=== PATIENT | female | born 1995 | race Caucasian/White ===

== ENCOUNTER → 2019-12-31 | Outpatient (CLI) | payer OTHER ==
[2019-12-31 13:23] LABS: Basophils % (A) 0 %; Eosinophils # (A) 0.1 k/uL (0-0.7); Eosinophils % (A) 1 %; HGB 14.4 gm/dL (11.4-16.0); Lymphocytes # (A) 2.3 k/uL (1.0-4.8); Lymphocytes % (A) 29 %; MCH 27.3 pg (25.0-35.0); MCV 85.4 fL (80.0-100.0); Mean Platelet Volume 8.1; Monocytes # (A) 0.3 k/uL (0-1.0); Monocytes % (A) 4 %; Neutrophils % (A) 65 %; Platelet Count 227 k/uL (150-450); RBC 5.27 m/uL (3.80-5.40); RDW 13.6 % (11.5-15.5); WBC 7.8 k/uL (3.8-10.6)
[2019-12-31 18:37] LABS: African American GFR (CKD) 121.3 (60.0-200.0); Albumin 4.7 g/dL (3.80-4.90); Albumin/Globulin Ratio 1.96 (1.60-3.17); Anion Gap 9.3 mmol/L (4.00-12.00); BUN/Creat Ratio 13.75 Ratio (12.00-20.00); Calcium 9.6 mg/dL (8.7-10.3); Carbon Dioxide 26.7 mmol/L (21.6-31.8); Globulin 2.4 g/dL (1.6-3.3); Non-African American GFR(CKD) 104.6 (60.0-200.0); Total Bilirubin 0.8 mg/dL (0.3-1.2); Total Protein 7.1 g/dL (6.2-8.2)
== END | disposition home or self-care (01) ==
LOC: LABWHC1 10:58
PROVIDERS: ATTEND Family Medicine
DX: R11.0 Nausea (principal)
CPT/HCPCS: 36415; 80053; 85025

== ENCOUNTER 2021-11-26 15:27 | Observation (INO) | payer OTHER ==
--- NOTE | 2021-11-26 17:29 | ED ---
Neuro HPI - General Chief Complaint: Dizziness Stated Complaint: Numbness, Dizzy, AMS Time Seen by Provider: 11/26/21 17:16 Source: patient, family, RN notes reviewed Mode of arrival: ambulatory Limitations: no limitations - History of Present Illness Is the patient presenting with stroke symptoms?: Yes Last Known Well Date: 11/26/21 Last Known Well Time: 13:00 Initial Comments: Patient is a 26-year-old female presenting to the emergency room with complaint of an episode of slurred speech, difficulty finding words and right upper extremity weakness that occurred earlier today around 1 PM along with associated dizziness and unsteady gait. She also reports a pressure sensation to her neck and head. She still has some dizziness and reports unsteady gait and mild headache without any difficulty with speech or extremity weakness at this time. She reports being Covid positive approximately 3 weeks ago but has returned to work and was at work when symptoms occurred. She does have a past medical history significant for asthma, palpitations, Car, "syncopal episodes" and febrile seizure disorder as a child. - Related Data Home Medications: Home Medications Medication Instructions Recorded Confirmed Albuterol Sulfate [Proair Hfa] 2 puff INHALATION RT-Q6H PRN 11/26/21 11/26/21 Allergies/Adverse Reactions: Allergies Allergy/AdvReac Type Severity Reaction Status Date / Time Aminoglycosides Allergy Anaphylaxis Verified 11/26/21 18:35 cefixime [From Suprax] Allergy Anaphylaxis Verified 11/26/21 18:35 measles and rubella live Allergy Anaphylaxis Verified 11/26/21 18:35 virus vacc [measles and rubella live vacc] measles vaccine, live Allergy Anaphylaxis Verified 11/26/21 18:35 tetanus and diphtheria Allergy Anaphylaxis Verified 11/26/21 18:35 toxoids [Tetanus&Diphtheria Toxoid] tree nut [Tree Nut] Allergy Anaphylaxis Verified 11/26/21 18:35 Review of Systems ROS Statement: Those systems with pertinent positive or pertinent negative responses have been documented in the HPI. ROS Other: All systems not noted in ROS Statement are negative. General Exam Limitations: no limitations General appearance: alert, in no apparent distress Head exam: Present: atraumatic Eye exam: Present: normal appearance, PERRL, EOMI. Absent: scleral icterus, conjunctival injection, nystagmus, periorbital swelling ENT exam: Present: normal exam, normal oropharynx, mucous membranes moist, TM's normal bilaterally Expanded Ear exam: Present: normal external inspection Neck exam: Present: normal inspection. Absent: tenderness, lymphadenopathy Respiratory exam: Present: normal lung sounds bilaterally. Absent: respiratory distress, wheezes, rales, rhonchi, stridor Cardiovascular Exam: Present: regular rate, normal rhythm, normal heart sounds. Absent: systolic murmur, diastolic murmur, rubs, gallop, clicks GI/Abdominal exam: Present: soft, normal bowel sounds. Absent: distended, tenderness, guarding, rebound, rigid Extremities exam: Present: normal inspection. Absent: pedal edema, joint swelling Back exam: Present: normal inspection Neurological exam: Present: alert, oriented X3, CN II-XII intact Psychiatric exam: Present: normal affect, normal mood Skin exam: Present: warm, dry, intact, normal color. Absent: rash Stroke MDM - Lab Data Result diagrams: 11/26/21 17:46 11/26/21 17:46 Lab Results 11/26/21 11/26/21 11/26/21 Range/Units 17:46 17:46 17:46 WBC 8.1 (3.8-10.6) k/uL RBC 4.52 (3.80-5.40) m/uL Hgb 13.0 (11.4-16.0) gm/dL Hct 38.1 (34.0-46.0) % MCV 84.4 (80.0-100.0) fL MCH 28.7 (25.0-35.0) pg MCHC 34.0 (31.0-37.0) g/dL RDW 12.9 (11.5-15.5) % Plt Count 197 (150-450) k/uL MPV 8.3 Neutrophils % 66 % Lymphocytes % 27 % Monocytes % 4 % Eosinophils % 1 % Basophils % 0 % Neutrophils # 5.4 (1.3-7.7) k/uL Lymphocytes # 2.2 (1.0-4.8) k/uL Monocytes # 0.3 (0-1.0) k/uL Eosinophils # 0.1 (0-0.7) k/uL Basophils # 0.0 (0-0.2) k/uL PT 10.4 (9.0-12.0) sec INR 0.9 (<1.2) APTT 22.7 (22.0-30.0) sec Sodium 136 L (137-145) mmol/L Potassium 4.0 (3.5-5.1) mmol/L Chloride 101 (98-107) mmol/L Carbon Dioxide 25 (22-30) mmol/L Anion Gap 10 mmol/L BUN 8 (7-17) mg/dL Creatinine 0.76 (0.52-1.04) mg/dL Est GFR (CKD-EPI)AfAm >90 (>60 ml/min/1.73 sqM) Est GFR (CKD-EPI)NonAf >90 (>60 ml/min/1.73 sqM) Glucose 95 (74-99) mg/dL Calcium 8.7 (8.4-10.2) mg/dL Total Bilirubin 0.4 (0.2-1.3) mg/dL AST 28 (14-36) U/L ALT 28 (4-34) U/L Alkaline Phosphatase 66 (38-126) U/L Troponin I (0.000-0.034) ng/mL Total Protein 6.3 (6.3-8.2) g/dL Albumin 3.7 (3.5-5.0) g/dL 11/26/21 Range/Units 17:46 WBC (3.8-10.6) k/uL RBC (3.80-5.40) m/uL Hgb (11.4-16.0) gm/dL Hct (34.0-46.0) % MCV (80.0-100.0) fL MCH (25.0-35.0) pg MCHC (31.0-37.0) g/dL RDW (11.5-15.5) % Plt Count (150-450) k/uL MPV Neutrophils % % Lymphocytes % % Monocytes % % Eosinophils % % Basophils % % Neutrophils # (1.3-7.7) k/uL Lymphocytes # (1.0-4.8) k/uL Monocytes # (0-1.0) k/uL Eosinophils # (0-0.7) k/uL Basophils # (0-0.2) k/uL PT (9.0-12.0) sec INR (<1.2) APTT (22.0-30.0) sec Sodium (137-145) mmol/L Potassium (3.5-5.1) mmol/L Chloride (98-107) mmol/L Carbon Dioxide (22-30) mmol/L Anion Gap mmol/L BUN (7-17) mg/dL Creatinine (0.52-1.04) mg/dL Est GFR (CKD-EPI)AfAm (>60 ml/min/1.73 sqM) Est GFR (CKD-EPI)NonAf (>60 ml/min/1.73 sqM) Glucose (74-99) mg/dL Calcium (8.4-10.2) mg/dL Total Bilirubin (0.2-1.3) mg/dL AST (14-36) U/L ALT (4-34) U/L Alkaline Phosphatase (38-126) U/L Troponin I <0.012 (0.000-0.034) ng/mL Total Protein (6.3-8.2) g/dL Albumin (3.5-5.0) g/dL - NIH Stroke Scale 1a. Level of Consciousness: (0) alert 1b. LOC Questions: (0) answers correctly 1c. LOC Commands: (0) performs tasks correctly 2. Best Gaze: (0) normal 3. Visual: (0) no visual loss 4. Facial Palsy: (0) normal symmetrical movement 5a. Motor Arm Left: (0) no drift 5b. Motor Arm Right: (0) no drift 6a. Motor Leg Left: (0) no drift 6b. Motor Leg Right: (0) no drift 7. Limb Ataxia: (0) absent 8. Sensory: (0) normal 9. Best Language: (0) no aphasia 10. Dysarthria: (0) normal 11. Extinction/Inattention: (0) no abnormality - Thrombolytic Inclusion/Exclusion Thrombolytic Inclusion Criteria: Symptom Onset < 4.5 h Thrombolytic Contraindications: NIH 0, Risks Outweigh Benefits - Medical Decision Making 26-year-old female presenting to the emergency room with complaints of dizziness, head pressure, transient episode of slurred speech difficulty finding words and right upper extremity weakness/numbness that is now resolved. NIH scale now 0. Her TPA candidate as benefits outweigh the risk with an NIH score of 0. Code stroke protocol followed CTA head and neck completed, EKG and blood work pending. Still with head pressure and mild tachycardia will give Toradol for pain and 1 L IV fluid bolus. Heart rate slightly improved with IV fluid bolus into the 90s. Pain improved with Toradol. CBC normal. CMP shows sodium 136 otherwise no abnormalities. Coags normal. No indication for any other laboratory studies. EKG shows sinus rhythm. Case discussed with Dr. Minaya who recommended observation stay with MRI MRA of the head and neck due to symptoms. As stated above risk outweigh benefits and TPA not to be administered. Case discussed with Dr. Griffith who discussed case with Dr. Pimentel who is on for [facility] for observation stay. Sinus rhythm, ventricular rate 93 bpm, NE interval 170 ms, QRS duration 85 ms, QT/QTC 380 338/389 ms, PRT axes 21, 11, 14 Past Medical History Past Medical History: Asthma, Seizure Disorder Additional Past Medical History / Comment(s): HX SYNCOPAL EPISODES, PALPITATIONS, HAS POTS. PT HAD EPISODES OF FEBRILE SEIZURES FROM AGE 1-4, NONE SINCE History of Any Multi-Drug Resistant Organisms: None Reported Past Surgical History: Cholecystectomy, Ear Surgery, Tonsillectomy Additional Past Surgical History / Comment(s): TTT, EPS 08/2013; TTT01/2013. BMT Past Anesthesia/Blood Transfusion Reactions: No Reported Reaction Past Psychological History: Anxiety Smoking Status: Never smoker Past Alcohol Use History: None Reported Past Drug Use History: Marijuana - Past Family History Father Additional Family Medical History / Comment(s): HEREDITARY NEUROPATHY W/ PRESSURE PALSY Course Vital Signs 11/26/21 16:54 Temperature 97.9 F Pulse Rate 93 Respiratory 20 Rate Blood Pressure 133/77 O2 Sat by Pulse 100 Oximetry Disposition Clinical Impression: Dizziness Disposition: ADMITTED IP TO THIS HOSP Condition: Stable Referrals: None,Stated [REFERRING] - 1-2 days Time of Disposition: 18:38
[2021-11-26] MEDS ORDERED: KETOROLAC 15 MG/ML 1 ML VIAL IVP STA (17:50)
[2021-11-26] MEDS ORDERED: SODIUM CHLORIDE 0.9% 1,000 ML IV STA (17:50)
--- NOTE | 2021-11-26 17:50 | CT ---
EXAMINATION TYPE: CODE STROKE: CT brain wo contr DATE OF EXAM: 11/26/2021 COMPARISON: None HISTORY: dizziness, slurred speech CT DLP: 1129.6 mGycm. Automated Exposure Control for Dose Reduction was Utilized. TECHNIQUE: CT scan of the head is performed without contrast. FINDINGS: Ventricles and sulci appear normal. There is no mass effect or midline shift. No sign of intracranial hemorrhage. The calvarium is intact. No evidence of cerebral edema. There is mucosal thi ckening right maxillary sinus which is completely opacified. No focal bone destruction. There is normal aeration of the mastoid air cells. IMPRESSION: No acute intracranial abnormality. Right maxillary sinusitis.
[2021-11-26 17:55] LABS: Basophils % (A) 0 %; Eosinophils # (A) 0.1 k/uL (0-0.7); Eosinophils % (A) 1 %; HCT 38.1 % (34.0-46.0); Lymphocytes # (A) 2.2 k/uL (1.0-4.8); Lymphocytes % (A) 27 %; MCH 28.7 pg (25.0-35.0); MCV 84.4 fL (80.0-100.0); Mean Platelet Volume 8.3; Monocytes # (A) 0.3 k/uL (0-1.0); Monocytes % (A) 4 %; Neutrophils # (A) 5.4 k/uL (1.3-7.7); Neutrophils % (A) 66 %; Platelet Count 197 k/uL (150-450); RBC 4.52 m/uL (3.80-5.40); RDW 12.9 % (11.5-15.5); WBC 8.1 k/uL (3.8-10.6)
[2021-11-26 18:03] LABS: ALT 28 U/L (4-34); AST 28 U/L (14-36); African American GFR (CKD) >90 (>60 ml/min/1.73 sqM); Albumin 3.7 g/dL (3.5-5.0); Alkaline Phosphatase 66 U/L (38-126); Anion Gap 10 mmol/L; Blood Urea Nitrogen 8 mg/dL (7-17); Calcium 8.7 mg/dL (8.4-10.2); Carbon Dioxide 25 mmol/L (22-30); Chloride 101 mmol/L (98-107); Glucose 95 mg/dL (74-99); Non-African American GFR(CKD) >90 (>60 ml/min/1.73 sqM); Sodium 136 mmol/L (137-145); Total Bilirubin 0.4 mg/dL (0.2-1.3); Total Protein 6.3 g/dL (6.3-8.2)
[2021-11-26 18:05] LABS: INR 0.9 (<1.2); Prothrombin Time 10.4 sec (9.0-12.0)
[2021-11-26 18:06] LABS: Partial Thromboplastin Time 22.7 sec (22.0-30.0)
[2021-11-26] MEDS ORDERED: NALOXONE 0.4 MG/ML 1 ML VIAL IV PRN (18:27)
--- NOTE | 2021-11-26 18:35 | XR ---
EXAMINATION TYPE: XR chest 2V DATE OF EXAM: 11/26/2021 COMPARISON: 12/06/2012 HISTORY: Dizziness TECHNIQUE: 2 views FINDINGS: Heart and mediastinum are normal. Lungs are clear. Diaphragm is normal. Bony thorax is inta ct. IMPRESSION: Normal chest. No change.
--- NOTE | 2021-11-26 18:47 | CT ---
EXAMINATION TYPE: CODE STROKE: CTA head neck DATE OF EXAM: 11/26/2021 COMPARISON: None HISTORY: dizziness, slurred speech CT DLP: 1040.6 mGycm Automated exposure control for dose reduction was used. CONTRAST: Performed without and with IV Contrast, patient injected with 65 mL of Isovue 370. Images obtained from the aortic arch to the vertex of the brain with the IV contrast. There are Three -D postprocessed images. There is normal branching pattern of the great vessels on the aortic arch. There is arterial flow in both subclavian arteries. There is arterial flow in the common internal and external carotid arteries bilaterally. There is wide patency of the carotid artery bifurcations. There is arterial flow in bot h vertebral arteries which show no stenosis. There is arterial flow on the vertebrobasilar artery sys tem. There is no evidence of carotid or vertebral artery aneurysm or dissection. There is arterial flow in the anterior middle and posterior cerebral arteries bilaterally. No mass ef fect. No evidence of intracranial aneurysm or neovascularity. There is normal enhancement of the veno us sinuses. No evidence of hemodynamic stenosis. IMPRESSION: Normal CT angiogram of the brain. Normal CT angiogram of the neck.
--- NOTE | 2021-11-27 02:31 | P.HPIM ---
History of Present Illness H&P Date: 11/26/21 The patient is a 26-year-old female with a PMH of POTS syndrome who presents to the emergency room with complaints of dizziness, slurred speech, and weakness. 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 She reports suddenly developing vertigo and lightheadedness, which was soon followed by slurred speech, posterior neck pressure, and subsequently right upper extremity weakness. She reports that her symptoms gradually improved after arrival at the emergency room and had fully resolved at the time of interview. The patient reports that she was diagnosed with COVID-19 3 weeks ago and had mild URI-like symptoms which have all resolved. She denied experiencing chest discomfort, shortness of breath, nausea, vomiting, headaches, fever chills, cough. Patient also denied illicit substance use. CT angiogram of head and neck as well as CT brain were unremarkable. EKG reveals sinus rhythm at [address]/T-wave changes noted as reviewed by me. Chest x-ray was unremarkable. Laboratory evaluation was reviewed and was also unremarkable. Review of systems: Pertinent positives and negatives as discussed in HPI, a complete review of systems was performed and all other systems are negative. Physical examination: General: non toxic, no distress, appears at stated age, morbidly obese Derm: no unusual rashes/lesions, warm Head: atraumatic, normocephalic, symmetric Eyes: EOMI, no lid lag, anicteric sclera, pupils equal round reactive to light ENT: Nose and ears atraumatic Neck: No cervical lymphadenopathy, trachea midline, supple Mouth: no lip lesion, mucus membranes moist Cardiovascular: S1S2 reg, no murmur, positive dorsalis pedis pulse bilateral, no edema Lungs: CTA bilateral, no rhonchi, no rales, no accessory muscle use Abdominal: soft, nontender to palpation, no guarding Ext: muscle strength 5 out of 5 in all 4 extremities grossly, no gross muscle atrophy, no contractures, Neuro: CN II-XI grossly intact, no gross focal neuro deficits Psych: Alert, oriented, appropriate affect Assessment/plan TIA-like symptoms -Neurology consult -Echocardiogram -Cardiac monitoring DVT prophylaxis -Heparin subq The patient is admitted with an anticipated less than 2 midnight stay for evaluation of TIA CODE STATUS: Full Code Discussed with: Patient Anticipated discharge date: in am Anticipated discharge place: Home Past Medical History Past Medical History: Asthma, Seizure Disorder Additional Past Medical History / Comment(s): HX SYNCOPAL EPISODES, PALPITATION S, HAS POTS. PT HAD EPISODES OF FEBRILE SEIZURES FROM AGE 1-4, NONE SINCE History of Any Multi-Drug Resistant Organisms: None Reported Past Surgical History: Cholecystectomy, Ear Surgery, Tonsillectomy Additional Past Surgical History / Comment(s): TTT, EPS 08/2013; TTT01/2013. BMT Past Anesthesia/Blood Transfusion Reactions: No Reported Reaction Past Psychological History: Anxiety Smoking Status: Never smoker Past Alcohol Use History: None Reported Past Drug Use History: Marijuana - Past Family History Father Additional Family Medical History / Comment(s): HEREDITARY NEUROPATHY W/ PRESSURE PALSY Medications and Allergies Home Medications Medication Instructions Recorded Confirmed Type Albuterol Sulfate [Proair Hfa] 2 puff INHALATION RT-Q6H PRN 11/26/21 11/26/21 History Allergies Allergy/AdvReac Type Severity Reaction Status Date / Time Aminoglycosides Allergy Anaphylaxis Verified 11/26/21 18:35 cefixime [From Suprax] Allergy Anaphylaxis Verified 11/26/21 18:35 measles and rubella live Allergy Anaphylaxis Verified 11/26/21 18:35 virus vacc [measles and rubella live vacc] measles vaccine, live Allergy Anaphylaxis Verified 11/26/21 18:35 tetanus and diphtheria Allergy Anaphylaxis Verified 11/26/21 18:35 toxoids [Tetanus&Diphtheria Toxoid] tree nut [Tree Nut] Allergy Anaphylaxis Verified 11/26/21 18:35 Physical Exam Vitals: Vital Signs Temp Pulse Resp BP Pulse Ox 11/26/21 20:31 98 18 128/77 99 11/26/21 16:54 97.9 F 93 20 133/77 100 Intake and Output 11/26/21 11/26/21 11/26/21 06:59 14:59 22:59 Other: Weight 131.542 kg Results CBC & Chem 7: 11/26/21 17:46 11/26/21 17:46 Labs: Abnormal Lab Results - Last 24 Hours (Table) 11/26/21 Range/Units 17:46 Sodium 136 L (137-145) mmol/L
[2021-11-27] MEDS: HEPARIN SODIUM,PORCINE/PF 5,000 UNIT/0.5 ML SYRINGE SQ SCH ×2 (08:35→16:33)
--- NOTE | 2021-11-27 14:12 | P.PN ---
Subjective Progress Note Date: 11/27/21 The patient was seen at bedside, no acute events overnight. She feels back to normal and she was requesting to go home. Objective - Vital Signs Vital signs: Vital Signs Temp 98.2 F 11/27/21 07:00 Pulse 84 11/27/21 07:00 Resp 17 11/27/21 07:00 BP 104/67 11/27/21 07:00 Pulse Ox 99 11/27/21 07:00 FiO2 Intake & Output 11/26/21 11/27/21 11/27/21 18:59 06:59 18:59 Intake Total 118 Balance 118 Weight 131.542 kg 131.542 kg Intake: Oral 118 Other: # Voids 1 - Exam General: [non toxic], [no distress], [appears at stated age] Derm: [warm], [dry] Head: [atraumatic], [normocephalic], [symmetric] Eyes: [EOMI], [no lid lag], [anicteric sclera] Mouth: [no lip lesion], [mucus membranes moist] Cardiovascular: [S1S2 reg], [no murmur], [positive posterior tibial pulse bilateral], Lungs: [CTA bilateral], [no rhonchi, no rales] , [no accessory muscle use] Abdominal: [soft], [ nontender to palpation], [no guarding], [no appreciable organomegaly] Ext: [no gross muscle atrophy], [no edema], [no contractures] Neuro: [ CN II-XI grossly intact], [no focal neuro deficits] Psych: [Alert], [oriented], [appropriate affect] - Labs CBC & Chem 7: 11/26/21 17:46 11/26/21 17:46 Labs: Abnormal Lab Results - Last 24 Hours (Table) 11/26/21 Range/Units 17:46 Sodium 136 L (137-145) mmol/L Assessment and Plan Assessment: TIA-like symptoms -Neurology consult -Echocardiogram -Cardiac monitoring DVT prophylaxis -Heparin subq The patient is admitted with an anticipated less than 2 midnight stay for evaluation of TIA CODE STATUS: Full Code Discussed with: Patient Anticipated discharge date: in am Anticipated discharge place: Home
--- NOTE | 2021-11-27 16:25 | P.CNNES ---
History of Present Illness Consult date: 11/27/21 Reason for Consult: Transient slurred speech History of Present Illness: The patient is a 26-year-old, right-handed female who is seen in neurologic consultation on November 27, 2021, via teleneurology. 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 She says she was walking back and forth from the store room to the shelves. She denies bending, stooping and heavy lifting. She said she had a sudden onset of dizziness. She describes a feeling as if her head was "moving underwater". She then began to experience tightness in the back of her head which extended into the right side of her neck and down her right arm. She then reportedly had slurring/stuttering of her speech. She says that she stopped stocking the shelves and was able to walk up to the [employer]. She says that she was able to use her right hand at the [employer]. The patient came into the emergency department after a couple hours. She says that after approximately 3 hours, her symptoms began to slowly resolve. She denies changes in her vision, drooping of her face, left-sided symptoms and symptoms involving her right leg. The patient denies a history of syncope. She denies a history of similar symptoms. 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 The patient reports that she started her day feeling fine. Workup in the emergency department included a CT scan of the brain which was negative for acute hemorrhage and infarct. There is also a CT angiogram of the head and neck. This was negative for significant stenosis and large vessel occlusion. A urine drug screen was not performed. The patient was not given IV TPA. Her symptoms continued to improve. This morning, the patient reports feeling back to her baseline. The patient denies tobacco use. She does report drinking alcohol occasionally. She uses marijuana occasionally. She denies illicit drug use, specifically cocaine and heroin. Past Medical History Past Medical History: Asthma, Seizure Disorder Additional Past Medical History / Comment(s): HX SYNCOPAL EPISODES, PALPIT ATIONS, HAS POTS. PT HAD EPISODES OF FEBRILE SEIZURES FROM AGE 1-4, NONE SINCE History of Any Multi-Drug Resistant Organisms: None Reported Past Surgical History: Cholecystectomy, Ear Surgery, Tonsillectomy Additional Past Surgical History / Comment(s): TTT, EPS 08/2013; . BMT Past Anesthesia/Blood Transfusion Reactions: No Reported Reaction Past Psychological History: Anxiety Smoking Status: Never smoker Past Alcohol Use History: None Reported Past Drug Use History: Marijuana - Past Family History Father Additional Family Medical History / Comment(s): HEREDITARY NEUROPATHY W/ PRESSURE PALSY Medications and Allergies Home Medications Medication Instructions Recorded Confirmed Type Albuterol Sulfate [Proair Hfa] 2 puff INHALATION RT-Q6H PRN 11/26/21 11/26/21 History Allergies Allergy/AdvReac Type Severity Reaction Status Date / Time Aminoglycosides Allergy Anaphylaxis Verified 11/26/21 18:35 cefixime [From Suprax] Allergy Anaphylaxis Verified 11/26/21 18:35 measles and rubella live Allergy Anaphylaxis Verified 11/26/21 18:35 virus vacc [measles and rubella live vacc] measles vaccine, live Allergy Anaphylaxis Verified 11/26/21 18:35 tetanus and diphtheria Allergy Anaphylaxis Verified 11/26/21 18:35 toxoids [Tetanus&Diphtheria Toxoid] tree nut [Tree Nut] Allergy Anaphylaxis Verified 11/26/21 18:35 Physical Examination - Vital Signs Vital Signs: Vital Signs Temp Pulse Pulse Pulse Pulse Pulse Resp 11/27/21 07:00 98.2 F 103 H 105 H 84 17 11/27/21 02:35 97.9 F 88 17 11/26/21 22:15 99.1 F 88 17 11/26/21 20:31 98 18 11/26/21 16:54 97.9 F 93 20 BP BP BP BP BP Pulse Ox 11/27/21 07:00 127/86 121/88 104/67 99 11/27/21 02:35 111/75 98 11/26/21 22:15 129/74 98 11/26/21 20:31 128/77 99 11/26/21 16:54 133/77 100 Intake and Output 11/26/21 11/27/21 11/27/21 22:59 06:59 14:59 Intake Total 118 Balance 118 Intake: Oral 118 Other: # Voids 1 1 Weight 131.542 kg Gen.: Patient is reclining in the bed. She is obese. She is in no acute distress. HEENT: Head is atraumatic, normocephalic. Fundus not visualized. There is no scleral icterus. Mucous membranes are moist. Neck: Supple without carotid bruits. There is no nuchal rigidity Heart: Regular rate and rhythm Lungs: Clear to auscultation Extremities: Without edema Neurological examination Mental status: The patient is awake, alert and oriented 3. Her speech is clear. There is no dysarthria or aphasia Cranial nerves: Pupils are equal at 5 mm and reactive. Visual saldana are full to confrontation. Extraocular movements are intact. There is no nystagmus. Facial sensation is intact. There is no facial asymmetry. Hearing is grossly intact. Uvula and palate are midline. Shoulder shrug is symmetric. Tongue protrudes midline. Motor: Strength is 5/5 throughout. Sensation: Grossly intact to light touch throughout. Coordination: Finger to nose and rapid alternating movements are intact. Deep tendon reflexes: 2+/4+ throughout. Gait: Not assessed Results - Laboratory Findings CBC and BMP: 11/26/21 17:46 11/26/21 17:46 Abnormal Lab Findings: Abnormal Labs 11/26/21 17:46 Sodium 136 L Assessment and Plan Assessment: 1. The patient currently has a normal neurological examination. Her symptoms are unlikely related to a central etiology, given her normal head CT, normal CT angiogram of the brain and neck and normal neurological examination. The patient denies a history of syncopal episodes yet it is listed in her past medical history, as well as, POT syndrome. The symptoms the patient experienced may have been secondary to significant hypotension. 2. The patient should follow up with her family doctor and/or cardiology, following discharge Thank you for allowing us to participate in the care of this patient Plan: 1. Agree with stroke workup, including 2-D echocardiogram 2. Consider outpatient MRI of the brain 3. Check orthostatic vitals 4. Time with Patient: Greater than 30 (spent 50 minutes examining patient, reviewing labs, imaging, documentation and preparing a note)
[2021-11-28 08:59] LABS: Basophils # (A) 0.01 X 10*3/uL (0.00-0.10); Basophils % (A) 0.2 %; Eosinophils # (A) 0.14 X 10*3/uL (0.04-0.35); Eosinophils % (A) 2.2 %; HCT 39.7 % (37.2-46.3); HGB 12.9 g/dL (12.0-15.0); Immature Grans, Automated 0.2 %; Lymphocytes # (A) 2.27 X 10*3/uL (0.90-5.00); Lymphocytes % (A) 35.3 %; MCH 27.5 pg (27.0-32.0); MCHC 32.5 g/dL (32.0-37.0); MCV 84.6 fL (80.0-97.0); Mean Platelet Volume 10.9 fL (9.5-12.2); Monocytes % (A) 6.2 %; NRBC Per 100 WBC 0 /100 WBCS (0.0-0.0); Neutrophils % (A) 55.9 %; Platelet Count 193 X 10*3/uL (140-440); RBC 4.69 X 10*6/uL (4.10-5.20); WBC 6.43 X 10*3/uL (4.50-10.00)
[2021-11-28 09:09] LABS: African American GFR (CKD) 140.6 (60.0-200.0); BUN/Creat Ratio 14.57 Ratio (12.00-20.00); Blood Urea Nitrogen 10.2 mg/dL (9.0-27.0); Calcium 8.3 mg/dL (8.7-10.3); Magnesium 1.9 mg/dL (1.5-2.4); Non-African American GFR(CKD) 121.3 (60.0-200.0); Phosphorus 3.9 mg/dL (2.4-5.1); Potassium 4.3 mmol/L (3.5-5.5)
[2021-11-28] MEDS: HEPARIN SODIUM,PORCINE/PF 5,000 UNIT/0.5 ML SYRINGE SQ SCH ×2 (09:11)
--- NOTE | 2021-11-28 13:56 | P.PN ---
Subjective Progress Note Date: 11/28/21 The patient was seen at bedside, no acute events overnight. She feels back to normal and she was requesting to go home. Objective - Vital Signs Vital signs: Vital Signs Temp 98.2 F 11/28/21 07:00 Pulse 83 11/28/21 07:00 Resp 17 11/28/21 07:00 BP 147/78 11/28/21 07:00 Pulse Ox 97 11/28/21 07:00 FiO2 Intake & Output 11/27/21 11/28/21 11/28/21 18:59 06:59 18:59 Intake Total 118 200 Balance 118 200 Intake: Oral 118 200 Other: Voiding Method Toilet # Voids 1 2 - Labs CBC & Chem 7: 11/28/21 05:41 11/28/21 05:41 Labs: Abnormal Lab Results - Last 24 Hours (Table) 11/28/21 Range/Units 05:41 Calcium 8.3 L (8.7-10.3) mg/dL Assessment and Plan Assessment: TIA-like symptoms -Neurology consult -Echocardiogram -Cardiac monitoring -Pending neurology clearance for discharge DVT prophylaxis -Heparin subq The patient is admitted with an anticipated less than 2 midnight stay for evalua tion of TIA CODE STATUS: Full Code Discussed with: Patient Anticipated discharge date: in am Anticipated discharge place: Home
[2021-11-28 14:33] VITALS: BP 131/85; PULSE 117; RESP 18; TEMP 98.5
--- NOTE | 2021-11-28 14:47 | P.DS ---
Providers Date of admission: 11/26/21 18:25 Expected date of discharge: 11/28/21 Attending physician: Antione Pimentel MD Consults: 11/26/21 18:27 Consult Physician Routine Consulting Provider: Dennis Cm Consult Reason/Comments: transient slurred speech Do you want consulting provider notified?: Yes Primary care physician: [facility] Course: Discharge Diagnosis: TIA-like symptoms Hospital Course: The patient is a 26-year-old female with a PMH of POTS syndrome who presents to the emergency room with complaints of dizziness, slurred speech, and weakness. 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 She reports suddenly developing vertigo and lightheadedness, which was soon followed by slurred speech, posterior neck pressure, and subsequently right upper extremity weakness. She reports that her symptoms gradually improved after arrival at the emergency room and had fully resolved at the time of interview. The patient reports that she was diagnosed with COVID-19 3 weeks ago and had mild URI-like symptoms which have all resolved. She denied experiencing chest discomfort, shortness of breath, nausea, vomiting, headaches, fever chills, cough. Patient also denied illicit substance use. CT angiogram of head and neck as well as CT brain were unremarkable. EKG reveals sinus rhythm at [address]/T-wave changes noted as reviewed by me. Chest x-ray was u nremarkable. Laboratory evaluation was reviewed and was also unremarkable. The patient was evaluated by neurology and cleared for discharge with outpatient follow up. Patient seen and examined at bedside. Vital signs reviewed and stable. General: [nontoxic], [no distress], [appears at stated age] Derm: [warm], [dry] Head: [atraumatic], [normocephalic], [symmetric] Eyes: [EOMI], [no lid lag], [anicteric sclera] Mouth: [no lip lesion], [mucus membranes moist] Cardiovascular: [S1S2 reg], [no murmur] Lungs: [CTA bilateral], [no rhonchi, no rales] , [no accessory muscle use] Abdominal: [soft], [ nontender to palpation], [no guarding], [no appreciable organomegaly] Ext: [no gross muscle atrophy], [no edema], [no contractures] Neuro: [ CN II-XI grossly intact], [no focal neuro deficits] Psych: [Alert], [oriented], [appropriate affect] A total of 40 minutes of time were spent preparing this complex discharge summary. Patient Condition at Discharge: Stable Plan - Discharge Summary Discharge Rx Participant: No New Discharge Prescriptions: Continue Albuterol Sulfate [Proair Hfa] 2 puff INHALATION RT-Q6H PRN PRN Reason: Shortness Of Breath Discharge Medication List Albuterol Sulfate [Proair Hfa] 2 puff INHALATION RT-Q6H PRN 11/26/21 [History] Follow up Appointment(s)/Referral(s): None,Stated [REFERRING] - 1-2 days Discharge Disposition: HOME SELF-CARE
--- NOTE | 2021-11-28 15:04 | CA ---
Transthoracic Echo Report Name: Renae Collins Age: 26 Gender: F : 1995 Exam Date: 11/27/2021 10:48 Exam Location: [facility] Ht (in): 66 Wt (lb): 290 Ordering Physician: Kelly Chao MD Attending/Referring Phys: Chief Security And Safety Officer Aleena Perez RDCS Procedure CPT: Indications: tia Cardiac Hx: Technical Quality: Good Contrast 1: Total Dose (mL): Contrast 2: Total Dose (mL): MEASUREMENTS (Male / Female) Normal Values 2D ECHO LV Diastolic Diameter PLAX 3.5 cm 4.2 - 5.9 / 3.9 - 5.3 cm LV Systolic Diameter PLAX 3.0 cm IVS Diastolic Thickness 1.2 cm 0.6 - 1.0 / 0.6 - 0.9 cm LVPW Diastolic Thickness 1.1 cm 0.6 - 1.0 / 0.6 - 0.9 cm LV Relative Wall Thickness 0.7 RV Internal Dim ED PLAX 3.4 cm LA Systolic Diameter LX 3.3 cm 3.0 - 4.0 / 2.7 - 3.8 cm LA Volume 35.0 cm??? 18 - 58 / 22 - 52 cm??? M-MODE Aortic Root Diameter MM 3.1 cm MV E Point Septal Separation 0.5 cm AV Cusp Separation MM 1.7 cm DOPPLER AV Peak Velocity 118.9 cm/s AV Peak Gradient 5.7 mmHg MV Area PHT 3.9 cm??? Mitral E Point Velocity 104.0 cm/s Mitral A Point Velocity 64.3 cm/s Mitral E to A Ratio 1.6 MV Deceleration Time 196.6 ms MV E' Velocity 6.5 cm/s Mitral E to MV E' Ratio 16.0 TR Peak Velocity 233.6 cm/s TR Peak Gradient 21.8 mmHg Right Ventricular Systolic Press 26.8 mmHg FINDINGS Left Ventricle Left ventricular ejection fraction is estimated at 60-65 %. Left ventricular cavity size normal. Mildly increased septal wall thickness. Mildly increased posterior wall thickness. Right Ventricle Mild right ventricular dilatation. Right ventricular systolic pressure within normal limits. Right Atrium Normal right atrial size. Left Atrium Normal left atrial size. No evidence for an atrial septal defect. Mitral Valve Structurally normal mitral valve. No mitral stenosis, regurgitation or prolapse. Aortic Valve Trileaflet aortic valve. No aortic valve stenosis or regurgitation. Tricuspid Valve Mild tricuspid regurgitation. Pulmonic Valve Structurally normal pulmonic valve. Pericardium Normal pericardium. No pericardial effusion. Aorta Normal size aortic root and proximal ascending aorta. CONCLUSIONS Mild LVH with preserved systolic function Mild RV enlargement Previewed by: Dr. Beau Phillips MD (Electronically Signed) Final Date: 28 November 2021 15:04
== END 2021-11-28 14:37 | disposition home or self-care (01) ==
LOC: EC 15:27 → 6NMEDSUR 18:25
PROVIDERS: ADMIT Family Medicine; ATTEND Family Medicine
DX: R42 Dizziness and giddiness (principal); R47.81 Slurred speech; R41.82 Altered mental status, unspecified; R20.0 Anesthesia of skin; R51.9 Headache, unspecified; R53.1 Weakness; R47.01 Aphasia; R26.81 Unsteadiness on feet; G90.A Postural orthostatic tachycardia syndrome [POTS]; Z86.16 Personal history of COVID-19; J45.909 Unspecified asthma, uncomplicated; G40.909 Epilepsy, unspecified, not intractable, without status epilepticus; Z90.49 Acquired absence of other specified parts of digestive tract; Z98.890 Other specified postprocedural states; F41.9 Anxiety disorder, unspecified; Z88.7 Allergy status to serum and vaccine; Z88.8 Allergy status to other drugs, medicaments and biological substances; Z88.1 Allergy status to other antibiotic agents; Z91.018 Allergy to other foods
CPT/HCPCS: 96372 ×2; 96361; 96374; 99285; 36415; 93005; 93306; 80053; 80048; 83735; 84100; 84484; 85025 ×2; 85610; 85730; 71046; 70496; 70450; 70498; G0378 ×3; J1885; Q9967; J1644 ×2; 96365; 96366; 96375

== ENCOUNTER → 2022-02-05 | Outpatient (CLI) | payer OTHER ==
--- NOTE | 2022-02-05 08:53 | MR ---
EXAMINATION TYPE: MR brain wo/w con DATE OF EXAM: 02/05/2022 COMPARISON: CT brain November 26, 2021 HISTORY: Episode of dizziness and right arm numbness in 2021, possible CVA TECHNIQUE: Multiplanar, multisequence images of the brain and brainstem is performed without and with IV contras t, utilizing 14 mL intravenous Gadavist . FINDINGS: Diffusion weighted images demonstrate no evidence of a recent infarct or other diffusion ab normality. There is no extra-axial fluid collection or significant white matter signal abnormality. The ventricular system and cisternal spaces are normal in size and appearance. The brain volume is age appropriate. T2 Star weighted images show no suspicious intraparenchymal blood product. Midline structures demonstrate normal morphology. The craniocervical junction appears within normal limits. Post contrast images demonstrate no abnormal enhancement. The dural venous sinuses appear pa tent. Large mucous retention and/or polyp occupies the entire right maxillary sinus. Smaller mucous r etention cyst or polyp in the left sphenoid sinus. Mild mucosal thickening anterior ethmoid sinuses. Nasal septum deviated to right of midline. Globes are intact bilaterally. IMPRESSION: Chronic paranasal sinus disease. No acute infarct. No abnormal enhancement.
== END | disposition home or self-care (01) ==
LOC: RADMRIMAIN 07:43
PROVIDERS: ATTEND Internal Medicine Hematology & Oncology
DX: J32.8 Other chronic sinusitis (principal); I67.89 Other cerebrovascular disease
CPT/HCPCS: 70553; A9585

== ENCOUNTER 2022-10-09 06:32 | Emergency (ER) | payer OTHER ==
[2022-10-09 06:42] VITALS: RESP 18
[2022-10-09] MEDS ORDERED: ORPHENADRINE 30 MG/ML 2 ML VIAL IM STA (07:00)
[2022-10-09] MEDS ORDERED: KETOROLAC 15 MG/ML 1 ML VIAL IM STA (07:00)
[2022-10-09] MEDS ORDERED: ONDANSETRON 4 MG TAB PO STA (07:00)
--- NOTE | 2022-10-09 07:06 | ED ---
General Adult HPI - General Chief complaint: Fall Stated complaint: Fall Time Seen by Provider: 10/09/22 06:48 Source: patient, RN notes reviewed, old records reviewed Mode of arrival: ambulatory Limitations: no limitations - History of Present Illness Initial comments: 27-year-old female presents with family with complaints of headache and neck pain. Patient states she has a history of POTS and sat up on the side of the couch and had a syncopal episode hitting her head on the table yesterday around 4 PM. Patient states that she sustained abrasions from the carpet to the right side of her face. She developed a headache and neck pain so she took aspirin around 4:00 and acetaminophen at 8 PM. Patient states that she woke up this morning with stiffness to her neck and upper back and continues to have a headache which prompted her to come to the emergency room. -: hour(s) (15) Location: head, face Radiation: neck Consistency: constant Improves with: none Associated Symptoms: headaches, nausea/vomiting Treatments Prior to Arrival: Aspirin (asa at 1600 yesterday, acetaminophen 8 PM) - Related Data Home Medications Medication Instructions Recorded Confirmed Albuterol Sulfate [Proair Hfa] 2 puff INHALATION RT-Q6H PRN 11/26/21 11/26/21 Previous Rx's Medication Instructions Recorded Cyclobenzaprine [Flexeril] 10 mg PO HS PRN #15 tab 10/09/22 Ibuprofen [Motrin] 600 mg PO Q8HR PRN #30 tab 10/09/22 Allergies Allergy/AdvReac Type Severity Reaction Status Date / Time Aminoglycosides Allergy Anaphylaxis Verified 10/09/22 06:42 cefixime [From Suprax] Allergy Anaphylaxis Verified 10/09/22 06:42 measles and rubella live Allergy Anaphylaxis Verified 10/09/22 06:42 virus vacc [measles and rubella live vacc] measles vaccine, live Allergy Anaphylaxis Verified 10/09/22 06:42 tetanus and diphtheria Allergy Anaphylaxis Verified 10/09/22 06:42 toxoids [Tetanus&Diphtheria Toxoid] tree nut [Tree Nut] Allergy Anaphylaxis Verified 10/09/22 06:42 Review of Systems ROS Statement: Those systems with pertinent positive or pertinent negative responses have been documented in the HPI. ROS Other: All systems not noted in ROS Statement are negative. Past Medical History Past Medical History: Asthma, Seizure Disorder Additional Past Medical History / Comment(s): HX SYNCOPAL EPISODES, PAL PITATIONS, HAS POTS. PT HAD EPISODES OF FEBRILE SEIZURES FROM AGE 1-4, NONE SINCE History of Any Multi-Drug Resistant Organisms: None Reported Past Surgical History: Cholecystectomy, Ear Surgery, Tonsillectomy Additional Past Surgical History / Comment(s): TTT, EPS 08/2013; TTT01/2013. BMT Past Anesthesia/Blood Transfusion Reactions: No Reported Reaction Past Psychological History: Anxiety Smoking Status: Never smoker Past Alcohol Use History: None Reported Past Drug Use History: Marijuana - Past Family History Father Additional Family Medical History / Comment(s): HEREDITARY NEUROPATHY W/ PRESSURE PALSY General Exam Limitations: no limitations General appearance: alert, in no apparent distress Head exam: Present: normocephalic, other (abrasions to right forehead and face) Eye exam: Present: normal appearance, PERRL, EOMI. Absent: scleral icterus, conjunctival injection, nystagmus, periorbital swelling, periorbital tenderness ENT exam: Present: normal oropharynx, mucous membranes moist Neck exam: Present: normal inspection, tenderness, full ROM. Absent: meningismus Expanded Neck exam: Absent: midline deformity, anterior neck swelling, tracheal deviation Respiratory exam: Present: normal lung sounds bilaterally. Absent: respiratory distress, accessory muscle use Cardiovascular Exam: Present: regular rate Extremities exam: Present: full ROM, normal capillary refill. Absent: tenderness, pedal edema Back exam: Present: tenderness (upper back ), paraspinal tenderness (upper thoracic and cervical) Neurological exam: Present: alert, oriented X3, CN II-XII intact, normal gait Expanded Patient oriented to: Present: person, place, time Cranial nerves: EOM's Intact: Normal, Gag Reflex: Normal, Tongue Deviation: Normal Motor strength exam: RUE: 5, LUE: 5, RLE: 5, LLE: 5 Eye Response: (4) open spontaneously Motor Response: (6) obeys commands Verbal Response: (5) oriented [place] Total: 15 Psychiatric exam: Present: normal affect, normal mood Skin exam: Present: warm, dry, normal color. Absent: cyanosis, diaphoretic, petechiae, pallor Course Vital Signs 10/09/22 10/09/22 10/09/22 06:39 07:32 07:34 Temperature 98.7 F Pulse Rate 71 Pulse Rate [ 70 Sitting Pulse Oximetery] Pulse Rate [ Standing Pulse Oximetery] Pulse Rate [ 79 Supine Pulse Oximetery] Respiratory 18 18 18 Rate Blood Pressure 151/106 Blood Pressure 132/108 [Right Arm Sitting] Blood Pressure [Right Arm Standing] Blood Pressure 126/98 [Right Arm Supine] O2 Sat by Pulse 100 97 97 Oximetry 10/09/22 10/09/22 07:36 09:16 Temperature 98.2 F Pulse Rate 67 Pulse Rate [ Sitting Pulse Oximetery] Pulse Rate [ 89 Standing Pulse Oximetery] Pulse Rate [ Supine Pulse Oximetery] Respiratory 18 18 Rate Blood Pressure 155/102 Blood Pressure [Right Arm Sitting] Blood Pressure 166/125 [Right Arm Standing] Blood Pressure [Right Arm Supine] O2 Sat by Pulse 98 98 Oximetry Medical Decision Making - Medical Decision Making Was pt. sent in by a medical professional or institution (, PA, ADMINISTRATION MANAGER, urgent care, hospital, or detention...) When possible be specific @ -No Did you speak to anyone other than the patient for history (EMS, parent, family, police, friend...)? What history was obtained from this source @ -No Did you review nursing and triage notes (agree or disagree)? Why? @ -I reviewed and agree with nursing and triage notes Were old charts reviewed (outside hosp., previous admission, EMS record, old EKG, old radiological studies, urgent care reports/EKG's, detention records)? Report findings @ -Yes Previous records reviewed, MRI of the brain on 11/26/2021 for episodes of dizziness and right arm numbness. Impression was chronic paranasal sinus disease. No acute infarct. No abnormal enhancement. Cardiac echo was performed on 11/27/2021 mild left ventricular hypertrophy with preserved systolic function. Mild right ventricular enlargement. Neurology consult was performed 11/26/2021 which noted that a CT angiogram of the head and neck were performed and negative for significant stenosis or large vessel occlusion. EKG from November 2021 reviewed and shows sinus rhythm with no ectopy or abnormal intervals. Differential Diagnosis (chest pain, altered mental status, abdominal pain women, abdominal pain men, vaginal bleeding, weakness, fever, dyspnea, syncope, headache, dizziness, GI bleed, back pain, seizure, CVA, palpatations, mental health, musculoskeletal)? @ -Differential Headache: Migraine, tension, cluster, carbon monoxide, central venous thrombosis, pension karma temporal arteritis, acute closure glaucoma, intercranial hemorrhage, mastoiditis, sinusitis, head injury, this is not meant to be an all-inclusive list. EKG interpreted by me (3pts min.). @ -n/a X-rays interpreted by me (1pt min.). @ -None done CT interpreted by me (1pt min.). @ -None done U/S interpreted by me (1pt. min.). @ -None done What testing was considered but not performed or refused? (CT, X-rays, U/S, labs)? Why? @ -CT considered however low mechanism of injury, Vietnamese CT unnecessary What meds were considered but not given or refused? Why? @ -None Did you discuss the management of the patient with other professionals (professionals i.e. , PA, ADMINISTRATION MANAGER, lab, RT, psych nurse, social work coordinator, sales attendant, teacher, chief scientific officer, therapeutic case manager)? Give summary @ -No Was smoking cessation discussed for >3mins.? @ -No Was critical care preformed (if so, how long)? @ -No Were there social determinants of health that impacted care today? How? (Homelessness, low income, unemployed, alcoholism, drug addiction, transportation, low edu. Level, literacy, decrease access to med. care, half-way, rehab)? @ -No Was there de-escalation of care discussed even if they declined (Discuss DNR or withdrawal of care, Hospice)? DNR status @ -No What co-morbidities impacted this encounter? (DM, HTN, Smoking, COPD, CAD, Cancer, CVA, ARF, Chemo, Hep., AIDS, mental health diagnosis, sleep apnea, morbid obesity)? @ -Patient has a stated history of asthma, seizure disorder, syncopal episodes, POTS, anxiety, obesity Was patient admitted / discharged? Hospital course, mention meds given and route, prescriptions, significant lab abnormalities, going to OR and other pertinent info. @ -Discharged 27-year-old female presents with family with complaints of headache and neck pain. Patient states she has a history of POTS and sat up on the side of the couch and had a syncopal episode hitting her head on the table yesterday around 4 PM. Patient states that she sustained abrasions from the carpet to the right side of her face. She developed a headache and neck pain so she took aspirin around 4:00 and acetaminophen at 8 PM. Patient states that she woke up this morning with stiffness to her neck and upper back and continues to have a headache which prompted her to come to the emergency room. On physical exam patient has no focal neurological deficits. Alert and oriented 4. Orthostatic negative. Patient was found to be hypertensive. I did explain to the patient that these readings did not indicate hypertension but she should speak with her doctor tomorrow which she states understanding. Patient was given Norflex and Toradol. States that she does feel a little bit better and is willing to be discharged home to follow up with her doctor tomorrow. Discharged home with family. Prescription for Flexeril to be given at bedtime in addition to Motrin provided. Case discussed with Dr. Nguyen. Undiagnosed new problem with uncertain prognosis? @ -No Drug Therapy requiring intensive monitoring for toxicity (Heparin, Nitro, Insulin, Cardizem)? @ -No Were any procedures done? @ -No Diagnosis/symptom? @ -Mild head injury, fall, abrasions, musculoskeletal pain Acute, or Chronic, or Acute on Chronic? @ -Acute Uncomplicated (without systemic symptoms) or Complicated (systemic symptoms)? @ -Uncomplicated Side effects of treatment? @ -No Exacerbation, Progression, or Severe Exacerbation? @ -No Poses a threat to life or bodily function? How? (Chest pain, [place], VA, pneumonia, PE, COPD, DKA, ARF, appy, cholecystitis, CVA, Diverticulitis, Homicidal, Suicidal, threat to staff... and all critical care pts) @ -No Disposition Clinical Impression: Fall, Musculoskeletal pain, Abrasion, Mild closed head injury Disposition: HOME SELF-CARE Condition: Good Instructions (If sedation given, give patient instructions): Head Injury (ED), Musculoskeletal Pain (ED) Additional Instructions: Increase your fluid intake. Change positions slowly. Take Tylenol and Motrin as needed for any pain or discomfort. You can take Flexeril at night but do not drink alcohol, drive or operate heavy machinery when taking this medication. Follow-up with the primary care doctor this week. Return to the emergency room with any new or concerning symptoms. Prescriptions: Cyclobenzaprine [Flexeril] 10 mg PO HS PRN #15 tab PRN Reason: Muscle Spasm Ibuprofen [Motrin] 600 mg PO Q8HR PRN #30 tab PRN Reason: Pain Is patient prescribed a controlled substance at d/c from ED?: No Referrals: Brianna Jane MD [Primary Care Provider] - 1-2 days Time of Disposition: 08:24
[2022-10-09 09:17] VITALS: BP 155/102; PULSE 67; TEMP 98.2
== END 2022-10-09 09:17 | disposition home or self-care (01) ==
LOC: EC 06:32
DX: S00.81XA Abrasion of other part of head, initial encounter (principal); J45.909 Unspecified asthma, uncomplicated; F12.90 Cannabis use, unspecified, uncomplicated; Z88.7 Allergy status to serum and vaccine; Z91.018 Allergy to other foods; Z88.1 Allergy status to other antibiotic agents; Z88.8 Allergy status to other drugs, medicaments and biological substances; Z86.59 Personal history of other mental and behavioral disorders; Z79.899 Other long term (current) drug therapy; Z90.49 Acquired absence of other specified parts of digestive tract; W18.09XA Striking against other object with subsequent fall, initial encounter
CPT/HCPCS: 99284; 96372 ×2; J2360; J1885

== ENCOUNTER → 2023-05-15 | Outpatient (CLI) | payer OTHER ==
[2023-05-15 17:11] LABS: Basophils # (A) 0.01 X 10*3/uL (0.00-0.10); Basophils % (A) 0.1 %; Eosinophils # (A) 0.08 X 10*3/uL (0.04-0.35); HCT 42.3 % (37.2-46.3); HGB 13.3 g/dL (12.0-15.0); Lymphocytes % (A) 27.3 %; MCHC 31.4 g/dL (32.0-37.0); MCV 85.8 FL (80.0-97.0); Mean Platelet Volume 11.2 FL (9.5-12.2); Monocytes % (A) 3.9 %; NRBC Per 100 WBC 0 X 10*3/uL (0.00-0.01); Neutrophils # (A) 5.19 X 10*3/uL (1.80-7.70); Neutrophils % (A) 67.4 %; Platelet Count 216 X 10*3/uL (140-440); RBC 4.93 X 10*6/uL (4.10-5.20); RDW 13.5 % (11.5-14.5)
[2023-05-15 17:15] LABS: Chol/HDL Ratio 3.54 Ratio
[2023-05-15 17:16] LABS: ALT 21 U/L (8-44); AST 26 U/L (13-35); Albumin 4.3 g/dL (3.8-4.9); Albumin/Globulin Ratio 1.72 Ratio (1.60-3.17); Alkaline Phosphatase 72 U/L (41-126); BUN/Creat Ratio 13.88 Ratio (12.00-20.00); Blood Urea Nitrogen 11.1 mg/dL (9.0-27.0); Calcium 9.2 mg/dL (8.7-10.3); Carbon Dioxide 25.7 mmol/L (21.6-31.8); Chloride 107 mmol/L (96-109); Globulin 2.5 g/dL (1.6-3.3); Glucose 78 mg/dL (70-110); LDL Cholesterol,Calculated 103.1 mg/dL (0.0-131.0); Magnesium 1.7 mg/dL (1.5-2.4); Potassium 4.1 mmol/L (3.5-5.5); Sodium 143 mmol/L (135-145); Total Bilirubin 0.4 mg/dL (0.3-1.2); Total Protein 6.8 g/dL (6.2-8.2); VLDL Calculation 11.68 mg/dL (5.00-40.00)
== END | disposition home or self-care (01) ==
LOC: LABPAT 12:02
PROVIDERS: ATTEND Internal Medicine Clinical Cardiac Electrophysiology
DX: Z01.812 Encounter for preprocedural laboratory examination (principal); G52.2 Disorders of vagus nerve; I45.5 Other specified heart block
CPT/HCPCS: 36415; 80053; 80061; 83735; 84443; 85025

== ENCOUNTER → 2023-05-15 | Outpatient (CLI) | payer OTHER | END | disposition home or self-care (01) | LOC: LABWHC1 11:58 | PROVIDERS: ATTEND Nurse Practitioner Adult Health | DX: Z53.9 Procedure and treatment not carried out, unspecified reason (principal) ==

== ENCOUNTER 2023-05-18 13:06 | Day surgery (SDC) | payer OTHER ==
[~2023-05-18 13:06] MED LIST: CLINDAMYCIN 600 MG in SODIUM CHLORIDE 0.9% 250 ML IRRIGATION PRN; CLINDAMYCIN 900 MG in DEXTROSE 5% IN WATER 50 ML IVPB PRN; ceFAZolin 1 GM in SODIUM CHLORIDE 0.9% IRRIG BTL 250 ML IRRIGATION PRN
[2023-05-18] MEDS: SODIUM CHLORIDE 0.9% 1,000 ML IV ONE (14:16)
[2023-05-18] MEDS: MIDAZOLAM 2 MG/2 ML VIAL IV STA (16:11)
[2023-05-18] MEDS: ONDANSETRON 4 MG/2 ML VIAL ONE (16:11)
[2023-05-18] MEDS ORDERED: PROPOFOL 10 MG/ML 20 ML VIAL IV ONE (19:03)
[2023-05-18] MEDS ORDERED: HEPARIN SODIUM,PORCINE 5,000 UNIT/ML 1 ML VIAL ONE (19:03)
[2023-05-18] MEDS ORDERED: MIDAZOLAM 2 MG/2 ML VIAL ONE (19:03)
[2023-05-18] MEDS ORDERED: fentaNYL (PF) 50 MCG/ML 2 ML AMP ONE (19:03)
[2023-05-18] MEDS ORDERED: LIDOCAINE 1% INJ 10MG/ML (20 ML MDV) ONE (19:29)
[2023-05-18] MEDS: LIDOCAINE 1% INJ 10MG/ML (20 ML MDV) SQ ONE (19:31)
[2023-05-18] MEDS: IOPAMIDOL-370 100ML BTL INJ ONE (19:58)
--- NOTE | 2023-05-18 20:43 | P.EPPROC ---
- EP Procedure Note Electrophysiology Procedure Note: Procedure Implantation of for Micra device Indication for the procedure Sudden intermittent severe bradycardia. Loop monitor documents recurrent severe pauses up to 9 seconds associated with presyncope Severe intermittent hyper vagotonia unresponsive to hyoscyamine Details Patient was brought to the EP lab in a fasting state. Written informed consent was obtained prior to the procedure. General anesthesia was provided. Venous access was obtained, right femoral vein The microdebrider system and sheaths were placed in the right atrium The Micronor device loaded in the delivery system was passed through this sheath, across the tricuspid valve into the right ventricle and implanted in the RV septum IV dye injection performed in ALLY and OSBORN views to confirm good contact on the septum of the right ventricle Testing performed Good sensing capture and impedance obtained Micra device deployed. Test performed. Stability demonstrated. Good sensing and pacing thresholds and stable impedances reconfirmed Final R waves 14 mV, pacing impedance 1430 ohms Pacing threshold 0.7 V at point 2 4 ms Device programmed to backup pacing VDD 50 bpm minute The Micra device detach from the delivery system. Delivery system were drawn Sheaths withdrawn Perclose closure of the venous access x2, success Plan Bedrest for 2 to 3 hours then ambulate transfer to Patient tolerated the procedure well without any acute complications
[2023-05-18] MEDS ORDERED: ACETAMINOPHEN TAB 325 MG TAB PO PRN (21:35)
--- NOTE | 2023-05-18 21:54 | XR ---
EXAMINATION: XR chest 1V portable DATE AND TIME: 05/18/2023 9:48 PM CLINICAL INDICATION: PHH; Lead placement check TECHNIQUE: Departmental protocol COMPARISON: None FINDINGS: EKG leads and two cardiac conduction devices noted. The lungs are clear. The pleural spaces are negative. The cardiac silhouette is not enlarged. The skeletal structures and soft tissues are negative for acute findings. IMPRESSION: No acute radiographic process.
[2023-05-18] MEDS: ONDANSETRON 4 MG/2 ML VIAL IVP STA (22:00)
[2023-05-18] MEDS ORDERED: ALBUTEROL HFA INHALER INHALATION PRN (22:01)
[2023-05-18] MEDS ORDERED: ALBUTEROL NEBULIZED 2.5 MG/3 ML INHALATION PRN (22:01)
[2023-05-18] MEDS: SODIUM CHLORIDE 0.9% 1,000 ML IV SCH ×2 (23:23)
[2023-05-19 00:33] LABS: Basophils % (A) 0 %; Eosinophils # (A) 0.1 k/uL (0-0.7); Eosinophils % (A) 2 %; HCT 43.3 % (34.0-46.0); HGB 13.4 gm/dL (11.4-16.0); Lymphocytes # (A) 2.4 k/uL (1.0-4.8); Lymphocytes % (A) 39 %; MCH 27.3 pg (25.0-35.0); MCV 88.1 fL (80.0-100.0); Mean Platelet Volume 8.1; Monocytes # (A) 0.3 k/uL (0-1.0); Monocytes % (A) 5 %; Neutrophils # (A) 3.3 k/uL (1.3-7.7); Neutrophils % (A) 53 %; Platelet Count 170 k/uL (150-450); RBC 4.92 m/uL (3.80-5.40); RDW 13.6 % (11.5-15.5); WBC 6.1 k/uL (3.8-10.6)
[2023-05-19] MEDS: ACETAMINOPHEN TAB 325 MG TAB PO PRN (00:41)
[2023-05-19 00:46] LABS: African American GFR (CKD) >90 (>60 ml/min/1.73 sqM); Anion Gap 9 mmol/L; Blood Urea Nitrogen 9 mg/dL (7-17); Calcium 8.2 mg/dL (8.4-10.2); Carbon Dioxide 19 mmol/L (22-30); Chloride 111 mmol/L (98-107); Glucose 101 mg/dL (74-99); Non-African American GFR(CKD) >90 (>60 ml/min/1.73 sqM); Potassium 3.3 mmol/L (3.5-5.1); Sodium 139 mmol/L (137-145)
--- NOTE | 2023-05-19 07:21 | XR ---
EXAMINATION TYPE: XR chest 2V DATE OF EXAM: 05/19/2023 COMPARISON: 05/18/2023 INDICATION: Lead placement check TECHNIQUE: Frontal and lateral views of the chest are obtained. FINDINGS: The heart size is normal. The pulmonary vasculature is normal. The lungs are clear. Loop recorder is over the chest IMPRESSION: 1. No acute pulmonary process.
[2023-05-19 07:55] VITALS: BP 145/97; PULSE 85; RESP 19; TEMP 97.7
--- NOTE | 2023-05-19 10:57 | P.DS ---
Providers Expected date of discharge: 05/19/23 Attending physician: Beau Phillips Primary care physician: [facility] Course: This is a 28-year-old female brought into the hospital by Dr. Phillips for implantation of Micra device which was completed yesterday. Patient has a very small amount of bleeding at the right groin incision site. She denies having any pain a little sore to the area only. The bleeding started this morning. No hematoma palpated. No sign of infection. Area is soft to palpation. Nursing will apply a pressure dressing and if no further bleeding, patient will be discharged home today in stable condition. Patient Condition at Discharge: Good Plan - Discharge Summary Discharge Rx Participant: Yes New Discharge Prescriptions: Discontinued Hyoscyamine Sulfate [Levbid] 0.375 mg PO BID No Action Albuterol Nebulized [Ventolin Nebulized] 2.5 mg INHALATION Q6H PRN PRN Reason: Wheezing Albuterol Sulfate [Proair Hfa] 2 puff INHALATION RT-Q6H PRN PRN Reason: Shortness Of Breath Discharge Medication List Albuterol Sulfate [Proair Hfa] 2 puff INHALATION RT-Q6H PRN 11/26/21 [History] Albuterol Nebulized [Ventolin Nebulized] 2.5 mg INHALATION Q6H PRN 11/07/22 [History] Follow up Appointment(s)/Referral(s): Beau Phillips MD [STAFF PHYSICIAN] - 05/26/23 3:30 pm (Device clinic follow-up in 1 week Stop hyoscyamine Appointment is for the Device Clinic. May 25 @ 3:30pm) Activity/Diet/Wound Care/Special Instructions: Post EP study - Ablation instructions 1. Keep access sites dry for 2 days. 2. No heavy lifting or straining for 2 days. 3. Avoid bending the hips repeatedly for 2 days. 4. You may go up and down stairs slowly Call if the following is noted 1. Bleeding, increasing swelling or pain at the access sites. 2. Increasing chest discomfort, especially upon taking a deep breath. 3. Increasing shortness of breath, at rest or with exertion. 4. Undue cough / phlegm 5. Difficulty or pain while swallowing. 6. Pain or change in color in the extremities. 7. Fever, chills, rigors. 8. Increasing headache or neurologic symptoms. 9. Dizziness, fainting, palpitations Discharge Disposition: HOME SELF-CARE
== END 2023-05-19 14:32 | disposition home or self-care (01) ==
LOC: CATHEP 13:06 → 6NMEDSUR 20:21 → CATHEP 05-19 14:32
PROVIDERS: ATTEND Internal Medicine Clinical Cardiac Electrophysiology
DX: R55 Syncope and collapse (principal); Z88.1 Allergy status to other antibiotic agents; Z79.899 Other long term (current) drug therapy
CPT/HCPCS: 33274; 80048; 85025; 81025; 71045; 71046; C1769; C1760; C1786; J2250; J0690; J2405; J2001; Q9967